=== PATIENT | female | born 1940 | race Caucasian/White ===

== ENCOUNTER 2017-09-14 17:57 | Emergency (ER) | END 2017-09-14 23:55 | disposition home or self-care (01) ==

== ENCOUNTER 2018-01-09 11:11 | Emergency (ER) | END 2018-01-09 14:50 | disposition home or self-care (01) ==

== ENCOUNTER 2018-11-29 20:31 | Observation (INO) | payer OTHER ==
[~2018-11-29] VITALS: Ht 160 cm; Wt 56.2 kg
[~2018-11-29 20:31] MED LIST: AMLO5TAB4 PO; ASPI-817 PO; CIPR500T4 PO; HYDR-4011 PO; MELA10TA PO; METR500T PO; PANT40TA4 PO; RED600CA7 PO
[2018-11-29 20:39] VITALS: Ht 160 cm; Wt 56.2 kg
[2018-11-29] MEDS ORDERED: ONDANSETRON 4 MG INJ IV STA (21:15)
[2018-11-29] MEDS ORDERED: NITROGLYCERIN 2% 1 GM OINT PKT TD STA (21:15)
[2018-11-29] MEDS ORDERED: morphine 4 MG/ML VIAL IV STA (21:15)
[2018-11-29] MEDS ORDERED: ASPIRIN 325 MG TAB PO STA (21:15)
[2018-11-29] MEDS ORDERED: ACETAMINOPHEN 325 MG TAB PO PRN (23:30)
[2018-11-29] MEDS ORDERED: ONDANSETRON 4 MG INJ IV PRN (23:30)
--- NOTE | 2018-11-29 23:44 | ERD ---
ER Documentation Chief Complaint Chief Complaint C/O BORDEN, NON RADIATING LT SIDED CP AND HIGH BP AT HOME X5 DAYS HPI This is a 78-year-old female who presents to the emergency room multiple complaints that include headache, chest pain and elevated blood pressure. She takes blood pressure medication. Symptoms on and off for 5 days. Headache is gradual onset and frontal, mildly present currently. Chest pain is central and pressure-like and nonradiating, currently 2 out of 10. She denies any fevers or chills. No nausea or vomiting. ROS All systems reviewed and are negative except as per history of present illness. Medications Home Meds Active Scripts Hydrocodone/Acetaminophen ([place] 5-325 Tablet) 1 Each Tablet, 1 TAB PO Q6H PRN for PAIN, #12 TAB Prov:CHANG MUSE. DO 01/09/18 Metronidazole* (Flagyl*) 500 Mg Tablet, 500 MG PO TID for 7 Days, TAB Prov:GEMMA MUSESTOLOS A. DO 01/09/18 Ciprofloxacin Hcl* (Ciprofloxacin Hcl*) 500 Mg Tablet, 500 MG PO BID for 7 Days, TAB Prov:GEMMA MUSESTOLOS A. DO 01/09/18 Reported Medications Pantoprazole* (Pantoprazole*) 40 Mg Tablet.dr, 40 MG PO AC BREAKFAST, TAB 01/09/18 Amlodipine Besylate* (Norvasc*) 5 Mg Tablet, 5 MG PO DAILY, TAB 01/09/18 Red Yeast Rice Extract (Red Yeast Rice) 600 Mg Capsule, 1200 MG PO DAILY, CAP 01/09/18 Melatonin (Melatonin) 10 Mg Tablet, 10 MG PO HS, TAB 01/09/18 Aspirin* (Aspirin* EC) 81 Mg Tablet.dr, 81 MG PO DAILY, TAB 01/09/18 Allergies Allergies: Coded Allergies: No Known Drug Allergies (Verified Allergy, Mild, 01/09/18) PMhx/Soc History of Surgery: Yes (C section) Anesthesia Reaction: No Hx Neurological Disorder: No Hx Respiratory Disorders: No Hx Cardiac Disorders: Yes (HTN) Hx Psychiatric Problems: No Hx Miscellaneous Medical Probl: No Hx Alcohol Use: No Hx Substance Use: No Hx Tobacco Use: No Smoking Status: Never smoker FmHx Family History: No diabetes Physical Exam Vitals Vital Signs Date Temp Pulse Resp B/P (MAP) Pulse Ox O2 O2 Flow FiO2 Time Delivery Rate 11/29/18 97.8 60 20 152/81 98 20:39 (104) Physical Exam General: Well developed, well nourished, no acute distress Head: Normocephalic, atraumatic. Eyes: Pupils equally reactive, EOM intact ENT: Moist mucous membranes Neck: Supple, no lymphadenopathy Respiratory: Lungs clear bilaterally, no distress Cardiovascular: RRR, no murmurs, rubs, or gallops Abdominal: Soft, non-tender, non-distended, no peritoneal signs : Deferred MSK: No edema, no unilateral swelling, 5/5 strength Neurologic: Alert and oriented, moving all extremities, normal speech, no focal weakness, no cerebellar signs Skin: No rash Psych: Normal mood Result Diagram: 11/29/18212111/29/182121 Results 24 hrs Laboratory Tests Test 11/29/18 21:22 White Blood Count 6.2 10^3/ul Red Blood Count 4.33 10^6/ul Hemoglobin 13.2 g/dl Hematocrit 39.4 % Mean Corpuscular Volume 91.0 fl Mean Corpuscular Hemoglobin 30.5 pg Mean Corpuscular Hemoglobin Concent 33.5 g/dl Red Cell Distribution Width 12.6 % Platelet Count 268 10^3/UL Mean Platelet Volume 9.3 fl Immature Granulocytes % 0.200 % Neutrophils % 48.7 % Lymphocytes % 40.8 % Monocytes % 9.2 % Eosinophils % 0.8 % Basophils % 0.3 % Nucleated Red Blood Cells % 0.0 /100WBC Immature Granulocytes # 0.010 10^3/ul Neutrophils # 3.0 10^3/ul Lymphocytes # 2.5 10^3/ul Monocytes # 0.6 10^3/ul Eosinophils # 0.1 10^3/ul Basophils # 0.0 10^3/ul Nucleated Red Blood Cells # 0.0 10^3/ul Sodium Level 141 mmol/L Potassium Level 3.9 mmol/L Chloride Level 106 mmol/L Carbon Dioxide Level 27 mmol/L Anion Gap 8 Blood Urea Nitrogen 16 mg/dl Creatinine 0.74 mg/dl Est Glomerular Filtrat Rate mL/min mL/min Glucose Level 92 mg/dl Calcium Level 9.4 mg/dl Troponin I < 0.012 ng/ml Current Medications Medications Dose Sig/Saira Start Time Status Last (Trade) Ordered Route PRN Stop Time Admin Dose Reason Admin Aspirin 325 mg ONCE STAT 11/29/18 DC (Aspirin) PO 21:15 11/29/18 21:17 1 inch ONCE STAT 11/29/18 DC 11/29/18 Nitroglycerin TD 21:15 21:33 11/29/18 21:17 (Nitroglyceri n 2% Oint) Morphine 4 mg ONCE STAT 11/29/18 DC 11/29/18 Sulfate IV 21:15 21:32 (morphine) 11/29/18 21:17 Ondansetron 4 mg ONCE STAT 11/29/18 DC 11/29/18 HCl (Zofran IV 21:15 21:32 Inj) 11/29/18 21:17 Ondansetron 4 mg ER BRIDGE 11/29/18 HCl (Zofran PRN IV 23:30 Inj) NAUSEA/VOMITI 11/30/18 23:29 NG 650 mg ER BRIDGE 11/29/18 Acetaminophen PRN PO 23:30 (Tylenol .MILD PAIN 11/30/18 23:29 Tab) 1-3 OR TEMP Procedures/MDM EKG, MONITORS, & DIAGNOSTIC IMAGING: EKG: I reviewed and interpreted a 12-lead EKG. Rhythm: Normal sinus rhythm ST Changes: No contiguous ST segment elevations T waves: No contiguous T wave inversions Impression: [No evidence of acute cardiac ischemia] Repeat EKG: EKG: I reviewed and interpreted a 12-lead EKG. Rhythm: Normal sinus rhythm ST Changes: No contiguous ST segment elevations T waves: No contiguous T wave inversions Impression: [No evidence of acute cardiac ischemia] Chest x-ray: I reviewed and interpreted a 1 view of the chest Mediastinum: No enlargement Cardiac silhouette: No cardiomegaly Airspace: Clear lung harrison bilaterally without evidence of pneumothorax Bones: No evidence of fracture CT brain: No acute process per radiologist read PROCEDURES: [None] LAB INTERPRETATION: Negative troponin MEDICAL DECISION MAKING: The patient's history, physical exam and clinical presentation is concerning for possible cardiogenic etiology and acute coronary syndrome. Based on the patient's clinical exam and history and risk factors, I have a much lower clinical concern for pulmonary embolism, acute aortic dissection, pneumothorax, pneumonia, cardiac tamponade HEART Score: 4 MACE Rate: 16.6% Shared Decision Making: We had a conversation regarding risk stratification, MACE rate, and the risks, benefits, alternatives of disposition planning options. Disposition planning: Admit ER COURSE: * Aspirin after negative CT brain. Nitroglycerin given. Blood pressure improved. CONSULTATION: [None] DISPOSITION PLAN: Telemetry admission for management of chest pain to rule out acute coronary syndrome, serial enzymes, risk stratification and consideration of provocative testing CONSULTATION: Accepting care team and consultations: I discussed the current laboratory data, diagnostic imaging and emergency care provided. Admitting team: Dr. Noyola Admitting team indication: Insurance directed Departure Diagnosis: Primary Impression: Chest pain Chest pain type: unspecified Qualified Codes: R07.9 - Chest pain, unspecified Additional Impression: Hypertensive urgency Condition: Stable LUISA ROBISON MD Nov 29, 2018 23:43
[2018-11-30] VITALS (12 sets, daily range): BP systolic 99–155; BP diastolic 55–75; PULSE 55–65; RESP 16–18
[2018-11-30] MEDS ORDERED: DOCUSATE SODIUM 100 MG CAP PO PRN
[2018-11-30] MEDS ORDERED: NACL 0.9% 3 ML SYG IV SCH
[2018-11-30] MEDS ORDERED: morphine 2 MG INJ IV PRN
[2018-11-30] MEDS ORDERED: NITROGLYCERIN (SL) 0.4 MG TAB SL PRN
[2018-11-30] MEDS ORDERED: BISACODYL (EC) 5 MG TAB PO PRN
[2018-11-30] MEDS ORDERED: ONDANSETRON 4 MG INJ IV PRN
[2018-11-30] MEDS ORDERED: HEPARIN 5,000 UNIT/1 ML VIAL SC SCH
[2018-11-30] MEDS: MELATONIN 5 MG TABLET PO SCH ×2 (02:31→22:51)
--- NOTE | 2018-11-30 02:57 | HP ---
Date/Time of Note Date/Time of Note DATE: 11/30/18 TIME: 02:57 Assessment/Plan VTE Prophylaxis SCD applied (from Nsg): Yes Pharmacological prophylaxis: NA/contraindicated Pharm contraindication: low risk/ambulating Lines/Catheters IV Catheter Type (from Nrsg): Saline Lock Assessment/Plan Hospital Course This is a 78-year-old female being admitted to the telemetry floor for: #1 chest pain: Rule out ACS versus hypertensive urgency. Patient reports a bit of blood pressures at home. Her blood pressure on presentation was in the 160s. Will check cardiac enzymes x3, the first that was negative. Will check an echocardiogram. Check hemoglobin C, lipid panel, TSH. Will consult cardiology Dr. Moscoso #2 hypertension: Resume patient's home amlodipine, will monitor patient's blood pressures patient titrate meds as indicated #3 headaches: Contrary to uncontrolled hypertension. CT scan of the brain is negative for any acute abnormalities. Will monitor closely. Optimize blood pressures. #4 hyperlipidemia: We will check lipid panel, patient takes red yeast as an outpatient. #5 DVT GI prophylaxis: SCDs, home PPI Further treatment strategy will be implemented as per the clinical course Result Diagram: 11/29/18212111/29/182121 Results 24hrs Laboratory Tests Test 11/29/18 21:22 White Blood Count 6.2 # Red Blood Count 4.33 Hemoglobin 13.2 Hematocrit 39.4 Mean Corpuscular Volume 91.0 Mean Corpuscular Hemoglobin 30.5 Mean Corpuscular Hemoglobin Concent 33.5 Red Cell Distribution Width 12.6 Platelet Count 268 Mean Platelet Volume 9.3 Immature Granulocytes % 0.200 Neutrophils % 48.7 Lymphocytes % 40.8 Monocytes % 9.2 Eosinophils % 0.8 Basophils % 0.3 Nucleated Red Blood Cells % 0.0 Immature Granulocytes # 0.010 Neutrophils # 3.0 Lymphocytes # 2.5 Monocytes # 0.6 Eosinophils # 0.1 Basophils # 0.0 Nucleated Red Blood Cells # 0.0 Sodium Level 141 Potassium Level 3.9 Chloride Level 106 Carbon Dioxide Level 27 Anion Gap 8 Blood Urea Nitrogen 16 Creatinine 0.74 Est Glomerular Filtrat Rate mL/min Glucose Level 92 Calcium Level 9.4 Troponin I < 0.012 HPI/ROS Admit Date/Time Admit Date/Time Nov 30, 2018 at 01:55 Hx of Present Illness Chief complaint: Chest pain This is a 78-year-old female who presents to the emergency room multiple complaints that include headache, chest pain and elevated blood pressure. She takes blood pressure medication. Symptoms on and off for 5 days. Headache is gradual onset and frontal, mildly present currently. Chest pain is central and pressure-like and nonradiating, currently 2 out of 10. She denies any fevers or chills. No nausea or vomiting. She denies any shortness of breath. Allergies: NKDA Medications: Aspirin Amlodipine Red yeast ROS Const: As per HPI Eyes : No pain discharge or redness or change in visual acuity ENT: No pain, sore throat, congestion, congestion, dysphagia or discharge Respiratory: No shortness of breath, cough, sputum, wheezing, or pleuritic pain Cardiovascular: As per HPI GI : no change in appetite, abdominal pain, nausea, vomiting, diarrhea, constipation, or change in the color his stool Genitourinary: No dysuria, hematuria, flank pain , discharge or CVA tenderness Musculoskeletal: No joint pain, back pain, neck pain, restricted range of motion in neck or joints Skin: No rash, bruising or hives Neuro: No headache, dizziness, syncope, seizure, focal weakness Endocrine: No polyuria, polydipsia, temperature intolerance Psych: No hallucination, depression, anxiety or suicidal ideation PMH/Family/Social Past Medical History Hypertension, hyperlipidemia Medications Current Medications Ondansetron HCl (Zofran Inj) 4 mg ER BRIDGE PRN IV NAUSEA/VOMITING; Start 11/29/18 at 23:30; Stop 11/30/18 at 23:29 Acetaminophen (Tylenol Tab) 650 mg ER BRIDGE PRN PO .MILD PAIN 1-3 OR TEMP; Start 11/29/18 at 23:30; Stop 11/30/18 at 23:29 Amlodipine Besylate (Norvasc) 5 mg DAILY PO ; Start 11/30/18 at 09:00 Aspirin (Halfprin) 81 mg DAILY PO ; Start 11/30/18 at 09:00 Pantoprazole (Protonix Tab) 40 mg AC BREAKFAST PO ; Start 11/30/18 at 07:00 IV Flush (NS 3 ml) 3 ml PER PROTOCOL IV ; Start 11/30/18 at 00:00 Ondansetron HCl (Zofran Inj) 4 mg Q6H PRN IV NAUSEA/VOMITING; Start 11/30/18 at 00:00 Nitroglycerin (Nitroglycerin (Sl Tab) 0.4 Mg) 1 tab Q5M PRN SL .CHEST PAIN; Start 11/30/18 at 00:00 Acetaminophen (Tylenol Tab) 650 mg Q6H PRN PO .PAIN 1-3 OR TEMP; Start 11/30/18 at 00:00 Morphine Sulfate (morphine) 2 mg Q4H PRN IV .PAIN 7-10; Start 11/30/18 at 00:00 Docusate Sodium (Colace) 100 mg Q12H PRN PO .CONSTIPATION; Start 11/30/18 at 00:00 Bisacodyl (Dulcolax) 5 mg DAILY PRN PO .CONSTIPATION; Start 11/30/18 at 00:00 Heparin Sodium (Porcine) (Heparin (5000 Units/1ml)) 5,000 unit Q8 SC Last administered on 11/30/18at 02:35; Admin Dose 5,000 UNIT; Start 11/30/18 at 00:00 Melatonin (Melatonin) 10 mg HS PO Last administered on 11/30/18at 02:31; Admin Dose 10 MG; Start 11/30/18 at 00:30 Hydralazine HCl (Apresoline) 10 mg Q4H PRN IV ELEVATED SYSTOLIC BP; Start 11/30 at 03:00 Coded Allergies: No Known Drug Allergies (Verified Allergy, Mild, 01/09/18) Past Surgical History Hysterectomy, x1 Family History Significant Family History: no pertinent family hx Social History Alcohol Use: occasionally Smoking Status: Never smoker Drug Use: none Exam/Review of Systems Vital Signs Vitals Vital Signs Date Temp Pulse Resp B/P (MAP) Pulse Ox O2 O2 Flow FiO2 Time Delivery Rate 11/30/18 97.5 65 16 155/68 97 Room Air 02:00 (97) Exam Exam General: Patient is a pleasant female currently lying in bed in no acute distress HEENT: Atraumatic, normocephalic. The pupils are equal, round and reactive. Extraocular motor are intact Neck: Supple with full range of motion. No rigidity or meningismus Chest: Nontender to palpation Lungs: Clear to auscultation bilaterally no crackles rales or wheezing Heart: Normal S1-S2, Regular rhythm and rate. No murmur, S3, or S4 Abdomen: Soft , nontender, nondistended , bowel sounds are present. No guarding no rebound tenderness , No masses or organomegaly. No costovertebral temporal angle mass Extremities: Normal to inspection, no edema no cyanosis Neurologic: Normal mental status, speech normal, cranial nerves II through XII are intact, motor and sensory are intact, Additional Comments EKG: Sinus bradycardia at approximately 54 bpm, no ST or T wave abnormalities concerning for acute ischemia PROCEDURE: CT Brain without contrast. CLINICAL INDICATION: Severe headache TECHNIQUE: A CT of the brain was performed on a multi-slice CT scanner utilizing axial imaging from the skull base through the vertex without IV contrast. Coronal and sagittal re-formations were created. Images were reviewed on a PACS workstation. The CTDIvol is 39 mGy and the DLP is 634 mGycm. DICOM images are available. 3-D reconstructions were not performed. One or more of the following dose reduction techniques were utilized: 1.) Automated exposure control 2.) Adjustment of the mA +/- kV according to patient's size 3.) Use of iterative reconstruction technique. COMPARISON: 10/08/2012 FINDINGS: The basilar cisterns, ventricular spaces and sulcal spaces are all mildly prominent. There is no midline shift or other evidence of mass effect. There are no abnormal foci of increased attenuation in the brain parenchyma. No abnormal foci of diminished attenuation are present. Bone-windows show no lytic or blastic calvarial lesions. The visualized paranasal sinuses and mastoid air cells are clear. IMPRESSION: 1. Mild central and cortical cerebral atrophy not substantially changed since the prior study, without evidence of intracranial hemorrhage, mass, or acute infarct. RPTAT:AAJJ Physician Zbigniew Date Time Electronically viewed and signed by Physician Zbigniew on 11/29/2018 22:59 GW/ CC: LUISA ROBISON MD [id number] PROCEDURE: XR Chest, 1 View CLINICAL INDICATION: Chest pain. TECHNIQUE: Frontal view of the chest. COMPARISON: 12/28/2015 FINDINGS: LUNGS: The lungs are hyperinflated, suggesting COPD. No consolidative pulmonary infiltrates noted. PLEURAL SPACE: Unremarkable. No pneumothorax. HEART: Unremarkable. No cardiomegaly. MEDIASTINUM: Unremarkable. BONES/JOINTS: Degenerative spine changes are noted. VASCULATURE: The thoracic aorta is tortuous and atherosclerotic. IMPRESSION: 1. The lungs are hyperinflated, suggesting COPD. 2. No consolidative pulmonary infiltrates noted. 3. There is no significant interval change from the previous study. RPTAT: [facility] Waqar Galvez, [employer] Date Time Electronically viewed and signed by Waqar Galvez [employer] on 22:27 RmC/ CC: LUISA ROBISON MD [id number] CAROLEE NIEVES Nov 30, 2018 02:57
[2018-11-30] MEDS ORDERED: hydrALAzine 20 MG INJ IV PRN (03:00)
[2018-11-30] MEDS ORDERED: ALBUTEROL/IPRATROPIUM (NEB) 3 ML AMP HHN PRN (03:00)
[2018-11-30] MEDS: PANTOPRAZOLE (EC) 40 MG TAB PO SCH (07:05)
[2018-11-30] MEDS ORDERED: AMLODIPINE 5 MG TAB PO SCH (09:00)
[2018-11-30] MEDS: ASPIRIN (EC) 81 MG TAB PO SCH (09:52)
[2018-11-30] MEDS: ACETAMINOPHEN 325 MG TAB PO PRN ×2 (09:59→15:20)
--- NOTE | 2018-11-30 13:17 | RADRPT ---
Echocardiogram Report Patient Name: AMAURI MOHANPatient ID: [id number] : 1940 (78y 5m)Study Date: 11/30/2018 7:33:25 AM Gender: FAccession #: [id number] Tech: Judi Lyman [facility] Location: 627 Ref.Physician: CAROLEE NIEVES Height(Cm): BSA: Weight(Kg): Quality: AdequateOrder Physician: CAROLEE NIEVES Account #: Procedures: Echocardiographic Report: Transthoracic echocardiogram with complete 2D, M-Mode, and doppler examination. Indications: Chest Pain. Measurements: 2D/M Mode Doppler Measurement Value Normal Range Measurement Value Normal Range LVIDd 2D 4.1 [ 3.8 - 5.2 ] cm AV Peak Roberto 1.7 [ 100.0 - 170.0 ] cm/sec LVIDs 2D 2.3 [ 2.2 - 3.5 ] cm AV Peak PG 12.0 [ 2.0 - 9.0 ] mmHg LVPWd 2D 1.0 [ 0.6 - 0.9 ] cm LVOT Peak Roberto 1.4 [ 70.0 - 110.0 ] cm/sec IVSd 2D 1.0 [ 0.6 - 0.9 ] cm LVOT Peak PG 8.0 [ 2.0 - 6.0 ] mmHg AoR Diam 2D 2.8 [ 2.3 - 3.1 ] cm MV E Peak Roberto 0.7 [ 60.0 - 130.0 ] cm/sec EDV 2D 73.4 [ 46.0 - 106.0 ] ml MV A Peak Roberto 0.9 [ 100.0 - 120.0 ] cm/sec ESV 2D 17.5 [ 14.0 - 42.0 ] ml MV E/A 0.8 [ 0.8 - 1.5 ] ratio EF 2D 76.2 [ 54.0 - 74.0 ] percent MV Decel Time 254 [ 104 - 258 ] msec LA Dimen 2D 2.9 [ 2.7 - 3.8 ] cm Lat E` Roberto 0.1 [ 10.0 - 15.0 ] cm/sec Lateral E/E` 10.7 [ 1.0 - 2.0 ] ratio MV E/A 0.8 [ 0.8 - 1.5 ] ratio TR Peak Roberto 2.3 [ 100.0 - 280.0 ] cm/sec TR Peak PG 22.0 mmHg RVSP 25.0 [ 10.0 - 36.0 ] mmHg RA Pressure 3.0 mmHg Findings: Left Ventricle: Normal left ventricular systolic function. Normal left ventricular cavity size. Normal left ventricular wall thickness. Ejection fraction is visually estimated at 65 %. Tissue Doppler/Mitral Doppler indices are consistent with impaired relaxation (Stage I diastolic dysfunction). Right Ventricle: Normal right ventricular size. Normal right ventricular systolic function. Left Atrium: The left atrium is normal in size. Right Atrium: The right atrium is normal in size. Mitral Valve: Normal appearance and function of the mitral valve with trace physiologic regurgitation. Aortic Valve: Normal appearance of the aortic valve. No significant aortic stenosis or insufficiency. Tricuspid Valve: Normal appearance of the tricuspid valve. The estimated Peak RVSP is 25 mmHg. There is mild tricuspid regurgitation. Pulmonic Valve: Pulmonic valve not well visualized. Pericardium: Normal pericardium with no significant pericardial effusion. Aorta: Normal aortic root. IVC: Normal size and normal respiratory collapse consistent with normal right atrial pressure. Conclusions: Normal left ventricular systolic function. Normal left ventricular cavity size. Normal left ventricular wall thickness. Ejection fraction is visually estimated at 65 %. Tissue Doppler/Mitral Doppler indices are consistent with impaired relaxation (Stage I diastolic dysfunction). Normal right ventricular size. Normal right ventricular systolic function. Normal appearance and function of the mitral valve with trace physiologic regurgitation. No significant aortic stenosis or insufficiency. The estimated Peak RVSP is 25 mmHg. There is mild tricuspid regurgitation. Normal pericardium with no significant pericardial effusion. Electronically Signed By: Joce Gonzalez 2018-11-30 13:16:50 PDT
--- NOTE | 2018-11-30 13:19 | PN ---
Date/Time of Note Date/Time of Note DATE: 11/30/18 TIME: 13:13 Assessment/Plan VTE Prophylaxis Risk score (from Ns)>0 risk: 3 SCD applied (from [facility]): No SCD contraindicated: low risk/ambulating Pharmacological prophylaxis: NA/contraindicated Pharm contraindication: low risk/ambulating Lines/Catheters IV [facility]from [facility] Saline Lock Assessment/Plan Assessment/Plan 1 Acute chest pain, rule out ACS- resolved - Cardiology consulted for further recommendations. serial troponins negative - ECHO ordered - A1c within normal limits - may be BP related given better controlled and chest pain resolved 2. Acute headache - CT head negative - HR low and may be contributing to BORDEN. - will d/c amlodipine and start on CHRISTINE inhibitor - Toradol PRN 3. HTN - BP controlled but will adjust medications given bradycardia. Will start on Lisinopril and monitor for tolerance 4. Disposition - Will d/c Norvasc and start on Lisinopril for BP control - Cardiology consulted for further recommendations given initial presentation with chest pain. Result Diagram: 11/30/18 0254 11/30/18 0254 Results 24hrs Laboratory Tests Test 11/29/18 21:22 11/30/18 02:54 11/30/18 10:27 White Blood Count 6.2 # 6.4 Red Blood Count 4.33 4.23 Hemoglobin 13.2 12.8 Hematocrit 39.4 39.0 Mean Corpuscular Volume 91.0 92.2 Mean Corpuscular Hemoglobin 30.5 30.3 Mean Corpuscular Hemoglobin Concent 33.5 32.8 Red Cell Distribution Width 12.6 12.7 Platelet Count 268 257 Mean Platelet Volume 9.3 9.6 Immature Granulocytes % 0.200 0.300 Neutrophils % 48.7 47.1 Lymphocytes % 40.8 41.1 Monocytes % 9.2 9.8 Eosinophils % 0.8 1.2 Basophils % 0.3 0.5 Nucleated Red Blood Cells % 0.0 0.0 Immature Granulocytes # 0.010 0.020 Neutrophils # 3.0 3.0 Lymphocytes # 2.5 2.6 Monocytes # 0.6 0.6 Eosinophils # 0.1 0.1 Basophils # 0.0 0.0 Nucleated Red Blood Cells # 0.0 0.0 Sodium Level 141 144 Potassium Level 3.9 3.8 Chloride Level 106 107 Carbon Dioxide Level 27 30 Anion Gap 8 7 Blood Urea Nitrogen 16 15 Creatinine 0.74 0.79 Est Glomerular Filtrat Rate mL/min Glucose Level 92 115 Calcium Level 9.4 9.5 Troponin I < 0.012 < 0.012 < 0.012 Hemoglobin A1c 5.3 Magnesium Level 2.0 Total Bilirubin 0.5 Direct Bilirubin 0.00 Indirect Bilirubin 0.5 Aspartate Amino Transf (AST/SGOT) 20 Alanine Aminotransferase (ALT/SGPT) 19 Alkaline Phosphatase 55 Creatine Kinase 49 39 Creatine Kinase Index 0.7 0.9 Creatinine Kinase MB (Mass) 0.33 0.34 Total Protein 6.9 Albumin 3.8 Globulin 3.10 Albumin/Globulin Ratio 1.22 Triglycerides Level 84 Cholesterol Level 197 LDL Cholesterol, Calculated 113 HDL Cholesterol 67 Cholesterol/HDL Ratio 2.9 Thyroid Stimulating Hormone (TSH) 2.160 Subjective 24 Hr Interval Summary Free Text/Dictation Patient still with headache but states chest discomfort resolved. Concerned about BP being elevated at time of presentation and only on Norvasc. Exam/Review of Systems Exam Vitals Vital Signs Date Temp Pulse Resp B/P (MAP) Pulse Ox O2 O2 Flow FiO2 Time Delivery Rate 11/30/18 60 12:01 11/30/18 97.7 18 110/55 98 Room Air 11:39 (73) Exam General: mild distress secondary to headache. HEENT: Atraumatic, normocephalic. The pupils are equal, round and reactive. Extraocular motor are intact Neck: Supple Chest: Nontender to palpation Lungs: Clear to auscultation bilaterally no crackles rales or wheezing Heart: Normal S1-S2, Regular rhythm and rate. No murmur, S3, or S4 Abdomen: Soft , nontender, nondistended , bowel sounds are present. No guarding no rebound tenderness Extremities: Normal to inspection, no edema no cyanosis Results Results 24hrs Laboratory Tests Test 11/29/18 21:22 11/30/18 02:54 11/30/18 10:27 White Blood Count 6.2 # 6.4 Red Blood Count 4.33 4.23 Hemoglobin 13.2 12.8 Hematocrit 39.4 39.0 Mean Corpuscular Volume 91.0 92.2 Mean Corpuscular Hemoglobin 30.5 30.3 Mean Corpuscular Hemoglobin Concent 33.5 32.8 Red Cell Distribution Width 12.6 12.7 Platelet Count 268 257 Mean Platelet Volume 9.3 9.6 Immature Granulocytes % 0.200 0.300 Neutrophils % 48.7 47.1 Lymphocytes % 40.8 41.1 Monocytes % 9.2 9.8 Eosinophils % 0.8 1.2 Basophils % 0.3 0.5 Nucleated Red Blood Cells % 0.0 0.0 Immature Granulocytes # 0.010 0.020 Neutrophils # 3.0 3.0 Lymphocytes # 2.5 2.6 Monocytes # 0.6 0.6 Eosinophils # 0.1 0.1 Basophils # 0.0 0.0 Nucleated Red Blood Cells # 0.0 0.0 Sodium Level 141 144 Potassium Level 3.9 3.8 Chloride Level 106 107 Carbon Dioxide Level 27 30 Anion Gap 8 7 Blood Urea Nitrogen 16 15 Creatinine 0.74 0.79 Est Glomerular Filtrat Rate mL/min Glucose Level 92 115 Calcium Level 9.4 9.5 Troponin I < 0.012 < 0.012 < 0.012 Hemoglobin A1c 5.3 Magnesium Level 2.0 Total Bilirubin 0.5 Direct Bilirubin 0.00 Indirect Bilirubin 0.5 Aspartate Amino Transf (AST/SGOT) 20 Alanine Aminotransferase (ALT/SGPT) 19 Alkaline Phosphatase 55 Creatine Kinase 49 39 Creatine Kinase Index 0.7 0.9 Creatinine Kinase MB (Mass) 0.33 0.34 Total Protein 6.9 Albumin 3.8 Globulin 3.10 Albumin/Globulin Ratio 1.22 Triglycerides Level 84 Cholesterol Level 197 LDL Cholesterol, Calculated 113 HDL Cholesterol 67 Cholesterol/HDL Ratio 2.9 Thyroid Stimulating Hormone (TSH) 2.160 Medications Medication Current Medications Ondansetron HCl (Zofran Inj) 4 mg ER BRIDGE PRN IV NAUSEA/VOMITING; Start 11/29/18 at 23:30; Stop 11/30/18 at 23:29 Acetaminophen (Tylenol Tab) 650 mg ER BRIDGE PRN PO .MILD PAIN 1-3 OR TEMP; Start 11/29/18 at 23:30; Stop 11/30/18 at 23:29 Amlodipine Besylate (Norvasc) 5 mg DAILY PO Last administered on 11/30/18at 0 9:52; Admin Dose 5 MG; Start 11/30/18 at 09:00 Aspirin (Halfprin) 81 mg DAILY PO Last administered on 11/30/18at 09:52; Admin Dose 81 MG; Start 11/30/18 at 09:00 Pantoprazole (Protonix Tab) 40 mg AC BREAKFAST PO Last administered on 11/30/18at 07:05; Admin Dose 40 MG; Start 11/30/18 at 07:00 IV Flush (NS 3 ml) 3 ml PER PROTOCOL IV ; Start 11/30/18 at 00:00 Ondansetron HCl (Zofran Inj) 4 mg Q6H PRN IV NAUSEA/VOMITING; Start 11/30/18 at 00:00 Nitroglycerin (Nitroglycerin (Sl Tab) 0.4 Mg) 1 tab Q5M PRN SL .CHEST PAIN; Start 11/30/18 at 00:00 Acetaminophen (Tylenol Tab) 650 mg Q6H PRN PO .PAIN 1-3 OR TEMP Last administered on 11/30/18at 09:59; Admin Dose 650 MG; Start 11/30/18 at 00:00 Morphine Sulfate (morphine) 2 mg Q4H PRN IV .PAIN 7-10; Start 11/30/18 at 00:00 Docusate Sodium (Colace) 100 mg Q12H PRN PO .CONSTIPATION; Start 11/30/18 at 00:00 Bisacodyl (Dulcolax) 5 mg DAILY PRN PO .CONSTIPATION; Start 11/30/18 at 00:00 Melatonin (Melatonin) 10 mg HS PO Last administered on 11/30/18at 02:31; Admin Dose 10 MG; Start 11/30/18 at 00:30 Hydralazine HCl (Apresoline) 10 mg Q4H PRN IV ELEVATED SYSTOLIC BP; Start 11/30/18 at 03:00 Albuterol/ Ipratropium (Duoneb) 3 ml Q4H RESP THERAPY PRN HHN SHORTNESS OF BREATH; Start 11/30/18 at 03:00 Heparin Sodium (Porcine) (Heparin (5000 Units/1ml)) 5,000 unit Q8 SC ; Start 11/30/18 at 14:00 OLU MORRISON MD Nov 30, 2018 13:19
[2018-11-30] MEDS ORDERED: KETOROLAC 15 MG INJ IV PRN (13:30)
[2018-11-30] MEDS: HEPARIN 5,000 UNIT/1 ML VIAL SC SCH ×2 (15:09→20:45)
--- NOTE | 2018-11-30 18:21 | CONS ---
DATE OF ADMISSION: 11/30/2018 DATE OF CONSULTATION: 11/30/2018 REASON FOR CONSULTATION: Chest pain. HISTORY OF PRESENT ILLNESS: The patient is a 78-year-old female who comes in with substernal chest p ain and no radiation. Complains of shortness of breath and palpitation, no dizziness, no syncope, no nausea, vomiting. Complains of headache, but no blurry vision. Her blood pressure in the ER was 15 2/81 mmHg. PAST MEDICAL HISTORY: 1. Hypertension. 2. Dyslipidemia. SOCIAL HISTORY: No smoking, alcohol or recreational drug. ALLERGIES: NONE. CURRENT MEDICATIONS: 1. Aspirin. 2. Lisinopril. 3. Heparin. 4. Protonix. REVIEW OF SYSTEMS: Unremarkable except that mentioned in the HPI. PHYSICAL EXAMINATION: VITAL SIGNS: Temperature is 97.5, heart rate of 65, blood pressure 155/68 mmHg, breathing at 16 and saturating 97% on room air. GENERAL: Patient awake, alert, oriented, in no apparent distress. NECK: No JVD or carotid bruit. CARDIOVASCULAR: Regular rate and rhythm, no murmur, rub or gallop. LUNGS: Clear to auscultation. ABDOMEN: Soft. Bowel sounds are present. There is no organomegaly. EXTREMITIES: No pedal edema. Review of 12-lead EKG shows sinus bradycardia with a ventricular rate of 57 beats per minute with nor mal [place], normal QRS and normal QT intervals with no acute ST-T wave changes. Chest x-ray shows change s consistent with COPD, no congestion, infiltrate, no cardiomegaly. Echocardiogram shows normal left ventricular systolic function, estimated left ventricular ejection f raction 65% with mild diastolic dysfunction. No pulmonary hypertension, no significant valvular hear t disease. LABORATORY DATA: WBC of 6.4, hemoglobin 12.8, hematocrit 39, platelet of 257. Sodium 144, potassium 3.8, chloride 107, CO2 30, hemoglobin A1c 5.3, magnesium 2, BUN 15, creatinine 0.79, triglyceride 84 . Cholecystectomy, total cholesterol 97, LDL 113, HDL 67. Troponin x3 is negative. ASSESSMENT AND PLAN: 1. A 64-year-old female with atypical chest pain, has been ruled out for acute coronary syndrome wit h serial negative troponins. 2. Abnormal EKG with sinus bradycardia. 3. Hypertensive urgency. 4. Dyslipidemia. 5. Gastroesophageal reflux disease. RECOMMENDATIONS: 1. Increase lisinopril to 10 mg daily. 2. Continue aspirin. 3. Continue GI and DVT prophylaxis. Dictated By: AKBAR AGUIRRE MD SR/NTS Conf#: [id number] DID#: [id number] CC: CAROLEE NIEVES MD;*EndCC*
[2018-11-30] MEDS ORDERED: ATORVASTATIN 40 MG TAB PO SCH (21:00)
[2018-11-30] MEDS ORDERED: NON-FORMULARY/PATIENT OWN MED (Melatonin 10 MG) PO SCH (21:00)
[2018-12-01] VITALS: PULSE 55
[2018-12-01 00:51] VITALS: BP 119/62; PULSE 58; RESP 16
[2018-12-01 04:00] VITALS: PULSE 53
[2018-12-01 04:40] VITALS: BP 121/69; PULSE 60; RESP 16
[2018-12-01] MEDS: PANTOPRAZOLE (EC) 40 MG TAB PO SCH (05:51)
[2018-12-01] MEDS: HEPARIN 5,000 UNIT/1 ML VIAL SC SCH (06:12)
[2018-12-01 07:43] VITALS: BP 137/62; PULSE 66; RESP 22
[2018-12-01 08:01] VITALS: PULSE 59
[2018-12-01] MEDS: ASPIRIN (EC) 81 MG TAB PO SCH (08:06)
[2018-12-01] MEDS ORDERED: LISINOPRIL 5 MG TAB PO SCH (09:00)
--- NOTE | 2018-12-01 10:29 | PN ---
Date/Time of Note Date/Time of Note DATE: 12/01/18 TIME: 10:25 Assessment/Plan VTE Prophylaxis Risk score (from Ns)>0 risk: 3 SCD applied (from Ns): No SCD contraindicated: low risk/ambulating Pharmacological prophylaxis: NA/contraindicated Pharm contraindication: low risk/ambulating Lines/Catheters [facility]from [facility] Saline Lock Assessment/Plan Assessment/Plan 1 Acute chest pain, rule out ACS- resolved - Cardiology consulted for further recommendations. serial troponins negative - ECHO results noted with EF 65% - A1c within normal limits 2. Acute headache- resolved - CT head negative - improved after amlodipine d/c - Toradol PRN 3. HTN - continue on Lisinopril and discussed with patient d/c [place] 4. Disposition - medically stable for discharge home Result Diagram: 12/01/18 0512 12/01/18 0512 Results 24hrs Laboratory Tests Test 11/30/18 10:27 12/01/18 05:12 Creatine Kinase 39 Creatine Kinase Index 0.9 Creatinine Kinase MB (Mass) 0.34 Troponin I < 0.012 White Blood Count 5.8 Red Blood Count 4.35 Hemoglobin 13.0 Hematocrit 40.0 Mean Corpuscular Volume 92.0 Mean Corpuscular Hemoglobin 29.9 Mean Corpuscular Hemoglobin Concent 32.5 Red Cell Distribution Width 12.7 Platelet Count 270 Mean Platelet Volume 9.8 Immature Granulocytes % 0.300 Neutrophils % 48.2 Lymphocytes % 40.3 Monocytes % 9.0 Eosinophils % 1.9 Basophils % 0.3 Nucleated Red Blood Cells % 0.0 Immature Granulocytes # 0.020 Neutrophils # 2.8 Lymphocytes # 2.3 Monocytes # 0.5 Eosinophils # 0.1 Basophils # 0.0 Nucleated Red Blood Cells # 0.0 Sodium Level 142 Potassium Level 3.9 Chloride Level 108 Carbon Dioxide Level 29 Anion Gap 5 Blood Urea Nitrogen 14 Creatinine 0.80 Glucose Level 93 Calcium Level 8.9 Phosphorus Level 3.5 Magnesium Level 2.0 Albumin 3.6 Subjective 24 Hr Interval Summary Free Text/Dictation Patient doing well and states symptoms resolved. No acute overnight events. Exam/Review of Systems Exam Vitals Vital Signs Date Temp Pulse Resp B/P (MAP) Pulse Ox O2 O2 Flow FiO2 Time Delivery Rate 12/01/18 59 08:01 12/01/18 98.0 22 137/62 96 Room Air 07:43 (87) Intake and Output 11/30/18 11/30/18 12/01/18 1515:00 23:00 07:00 IntakeIntake Total 800 ml 300 ml BalanceBalance 800 ml 300 ml Exam General: no acute distress Neck: Supple Lungs: Clear to auscultation bilaterally no crackles rales or wheezing Heart: Normal S1-S2, Regular rhythm and rate. No murmur, S3, or S4 Abdomen: Soft , nontender, nondistended , bowel sounds are present. No guarding no rebound tenderness Extremities: Normal to inspection, no edema no cyanosis Results Results 24hrs Laboratory Tests Test 11/30/18 10:27 12/01/18 05:12 Creatine Kinase 39 Creatine Kinase Index 0.9 Creatinine Kinase MB (Mass) 0.34 Troponin I < 0.012 White Blood Count 5.8 Red Blood Count 4.35 Hemoglobin 13.0 Hematocrit 40.0 Mean Corpuscular Volume 92.0 Mean Corpuscular Hemoglobin 29.9 Mean Corpuscular Hemoglobin Concent 32.5 Red Cell Distribution Width 12.7 Platelet Count 270 Mean Platelet Volume 9.8 Immature Granulocytes % 0.300 Neutrophils % 48.2 Lymphocytes % 40.3 Monocytes % 9.0 Eosinophils % 1.9 Basophils % 0.3 Nucleated Red Blood Cells % 0.0 Immature Granulocytes # 0.020 Neutrophils # 2.8 Lymphocytes # 2.3 Monocytes # 0.5 Eosinophils # 0.1 Basophils # 0.0 Nucleated Red Blood Cells # 0.0 Sodium Level 142 Potassium Level 3.9 Chloride Level 108 Carbon Dioxide Level 29 Anion Gap 5 Blood Urea Nitrogen 14 Creatinine 0.80 Glucose Level 93 Calcium Level 8.9 Phosphorus Level 3.5 Magnesium Level 2.0 Albumin 3.6 Medications Medication Current Medications Aspirin (Halfprin) 81 mg DAILY PO Last administered on 12/01/18at 08:06; Admin Dose 81 MG; Start 11/30/18 at 09:00 Pantoprazole (Protonix Tab) 40 mg AC BREAKFAST PO Last administered on 12/01/18at 05:51; Admin Dose 40 MG; Start 11/30/18 at 07:00 IV Flush (NS 3 ml) 3 ml PER PROTOCOL IV ; Start 11/30/18 at 00:00 Ondansetron HCl (Zofran Inj) 4 mg Q6H PRN IV NAUSEA/VOMITING; Start 11/30/18 at 00:00 Nitroglycerin (Nitroglycerin (Sl Tab) 0.4 Mg) 1 tab Q5M PRN SL .CHEST PAIN; Start 11/30/18 at 00:00 Acetaminophen (Tylenol Tab) 650 mg Q6H PRN PO .PAIN 1-3 OR TEMP Last administered on 11/30/18at 15:20; Admin Dose 650 MG; Start 11/30/18 at 00:00 Morphine Sulfate (morphine) 2 mg Q4H PRN IV .PAIN 7-10; Start 11/30/18 at 00:00 Docusate Sodium (Colace) 100 mg Q12H PRN PO .CONSTIPATION; Start 11/30/18 at 00:00 Bisacodyl (Dulcolax) 5 mg DAILY PRN PO .CONSTIPATION; Start 11/30/18 at 00:00 Melatonin (Melatonin) 10 mg HS PO Last administered on 11/30/18at 22:51; Admin Dose 10 MG; Start 11/30/18 at 00:30 Hydralazine HCl (Apresoline) 10 mg Q4H PRN IV ELEVATED SYSTOLIC BP; Start 11/30/18 at 03:00 Albuterol/ Ipratropium (Duoneb) 3 ml Q4H RESP THERAPY PRN HHN SHORTNESS OF BREATH; Start 11/30/18 at 03:00 Heparin Sodium (Porcine) (Heparin (5000 Units/1ml)) 5,000 unit Q8 SC Last administered on 12/01/18at 06:12; Admin Dose 5,000 UNIT; Start 11/30/18 at 14:00 Ketorolac Tromethamine (Toradol) 15 mg Q6H PRN IV headache; Start 11/30/18 at 13:30; Stop 12/03/18 at 13:29 Lisinopril (Zestril) 5 mg DAILY PO Last administered on 12/01/18at 08:06; Admin Dose 5 MG; Start 12/01/18 at 09:00 Atorvastatin Calcium (Lipitor) 40 mg HS PO Last administered on 11/30/18at 20:41; Admin Dose 40 MG; Start 11/30/18 at 21:00 OLU MORRISON MD Dec 01, 2018 10:29
[2018-12-01] MEDS ORDERED: LISI-313 PO (10:31)
--- NOTE | 2018-12-01 10:33 | PDOCDIS ---
Discharge Instructions DIAGNOSIS Discharge Diagnosis 1 Acute chest pain, rule out ACS- resolved 2. Acute headache- resolved 3. HTN CONDITION [id number] Patient Condition: [id number] Stable HOME CARE INSTRUCTIONS: [id number] Diet Instructions: [id number] Low Fat /Cholesterol ACTIVITY: [id number] Activity Restrictions: [id number] No Restrictions FOLLOW UP/APPOINTMENTS Follow-up Plan 1. Follow up with your primary care physician in 1-2 weeks 2. Take Lisinopril daily for blood pressure control. Stop taking Amlodipine since was causing low heart rate which may have been contributing to your headaches 3. Continue low cholesterol, low fat diet 4. If experiencing any concerning symptoms, please go to the nearest emergency department 1. Siga con park mdico de atencin primaria en 1-2 semanas 2. [place] Lisinopril diariamente para el control de la presin arterial. Deje de adilene Amlodipino ya que estaba causando gordo frecuencia cardaca baja que puede myah estado contribuyendo a luisito kelvin de bhumi 3. Contine con bajo nivel de colesterol, dieta baja en grasas 4. Si experimenta algn sntoma preocupante, por favor vaya al departamento de emergencias OLU Grant MD Dec 01, 2018 10:33
--- NOTE | 2018-12-01 12:39 | DS ---
Date/Time of Note Date/Time of Note DATE: 12/01/18 TIME: 12:36 Discharge Summary Admission/Discharge Info Admit Date/Time Nov 30, 2018 at 01:55 Discharge Date/Time Dec 01, 2018 at 11:10 Discharge Diagnosis 1 Acute chest pain, rule out ACS- resolved 2. Acute headache- resolved 3. HTN Patient Condition: Stable Consults Cardiology- Dr. Gonzalez Hx of Present Illness Chief complaint: Chest pain This is a 78-year-old female who presents to the emergency room multiple complaints that include headache, chest pain and elevated blood pressure. She takes blood pressure medication. Symptoms on and off for 5 days. Headache is gradual onset and frontal, mildly present currently. Chest pain is central and pressure-like and nonradiating, currently 2 out of 10. She denies any fevers or chills. No nausea or vomiting. She denies any shortness of breath. Allergies: NKDA Medications: Aspirin Amlodipine Red yeast Hospital Course Patient was admitted for chest pain rule out and evaluation of headache. She was seen by Cardiology and ACS was ruled out by serial troponins, EKG negative for acute ST changes, and ECHO without structural abnormalities. Patients Norvasc was changed to Lisinopril given bradycardia with resolution of chest pain and headache. patient was tolerating PO intake and vitals remained stable. Patient was discharged home in good condition. Home Meds Active Scripts Lisinopril* (Lisinopril*) 5 Mg Tablet, 5 MG PO DAILY for 30 Days, #30 TAB 1 Refill Prov:OUL MORRISON MD 12/01/18 Reported Medications Pantoprazole* (Pantoprazole*) 40 Mg Tablet.dr, 40 MG PO AC BREAKFAST, TAB 01/09/18 Red Yeast Rice Extract (Red Yeast Rice) 600 Mg Capsule, 1200 MG PO DAILY, CAP 01/09/18 Melatonin (Melatonin) 10 Mg Tablet, 10 MG PO HS, TAB 01/09/18 Aspirin* (Aspirin* EC) 81 Mg Tablet.dr, 81 MG PO DAILY, TAB 01/09/18 Discontinued Reported Medications Amlodipine Besylate* (Norvasc*) 5 Mg Tablet, 5 MG PO DAILY, TAB 01/09/18 Discontinued Scripts Hydrocodone/Acetaminophen ([place] 5-325 Tablet) 1 Each Tablet, 1 TAB PO Q6H PRN for PAIN, #12 TAB Prov:CHANG MUSE DO 01/09/18 Metronidazole* (Flagyl*) 500 Mg Tablet, 500 MG PO TID for 7 Days, TAB Prov:CHANG MUSE. DO 01/09/18 Ciprofloxacin Hcl* (Ciprofloxacin Hcl*) 500 Mg Tablet, 500 MG PO BID for 7 Days, TAB Prov:CHANG MUSE. DO 01/09/18 Follow-up Plan 1. Follow up with your primary care physician in 1-2 weeks 2. Take Lisinopril daily for blood pressure control. Stop taking Amlodipine since was causing low heart rate which may have been contributing to your headaches 3. Continue low cholesterol, low fat diet 4. If experiencing any concerning symptoms, please go to the nearest emergency department 1. Siga con park mdico de atencin primaria en 1-2 semanas 2. [place] Lisinopril diariamente para el control de la presin arterial. Deje de adilene Amlodipino ya que estaba causando gordo frecuencia cardaca baja que puede myah estado contribuyendo a luisito kelvin de bhumi 3. Contine con bajo nivel de colesterol, dieta baja en grasas 4. Si experimenta algn sntoma preocupante, por favor vaya al departamento de emergencias ms pas[place] Primary Care Provider Not On Staff Doctor Time spent on discharge: > 30 minutes Pending Labs Laboratory Tests Test 12/01/18 05:12 White Blood Count 5.8 10^3/ul (4.8-10.8) Red Blood Count 4.35 10^6/ul (4.20-5.40) Hemoglobin 13.0 g/dl (12.0-16.0) Hematocrit 40.0 % (37.0-47.0) Mean Corpuscular Volume 92.0 fl (82.0-101.0) Mean Corpuscular Hemoglobin 29.9 pg (29.0-33.0) Mean Corpuscular Hemoglobin Concent 32.5 g/dl (32.0-37.0) Red Cell Distribution Width 12.7 % (11.5-14.5) Platelet Count 270 10^3/UL (140-415) Mean Platelet Volume 9.8 fl (7.4-10.4) Immature Granulocytes % 0.300 % (0.001-0.429) Neutrophils % 48.2 % (39.0-77.0) Lymphocytes % 40.3 % (15.0-51.0) Monocytes % 9.0 % (0.0-11.0) Eosinophils % 1.9 % (0.0-7.0) Basophils % 0.3 % (0.0-2.0) Nucleated Red Blood Cells % 0.0 /100WBC (0.0-0.0) Immature Granulocytes # 0.020 10^3/ul (0.0-0.031) Neutrophils # 2.8 10^3/ul (1.6-7.5) Lymphocytes # 2.3 10^3/ul (0.8-2.9) Monocytes # 0.5 10^3/ul (0.3-0.9) Eosinophils # 0.1 10^3/ul (0.0-0.5) Basophils # 0.0 10^3/ul (0.0-0.1) Nucleated Red Blood Cells # 0.0 10^3/ul (0.0-0.0) Sodium Level 142 mmol/L (135-144) Potassium Level 3.9 mmol/L (3.5-5.1) Chloride Level 108 mmol/L (97-110) Carbon Dioxide Level 29 mmol/L (21-31) Anion Gap 5 (5-13) Blood Urea Nitrogen 14 mg/dl (7-20) Creatinine 0.80 mg/dl (0.44-1.00) Glucose Level 93 mg/dl (70-220) Calcium Level 8.9 mg/dl (8.4-10.2) Phosphorus Level 3.5 mg/dl (2.5-4.9) Magnesium Level 2.0 mg/dl (1.7-2.5) Albumin 3.6 g/dl (3.3-4.9) OLU MORRISON MD Dec 01, 2018 12:39
== END 2018-12-01 11:10 | disposition home or self-care (01) ==
LOC: E/R 20:31 → 6WM 11-30 01:55
PROVIDERS: ADMIT Family Medicine; ATTEND Internal Medicine
DX: R07.9 Chest pain, unspecified (principal); R51 Headache; I10 Essential (primary) hypertension; E78.5 Hyperlipidemia, unspecified; K21.9 Gastro-esophageal reflux disease without esophagitis; Z79.82 Long term (current) use of aspirin
CPT/HCPCS: 36415; 70450; 71045; 80048; 80053; 80061; 80069; 82550; 82553; 83036; 83735; 84443; 84484; 85025; 93005; 93306; 96374; 96375; 99285; G0378; J1644; J2270; J2405; 99217; J1885